=== PATIENT | male | born 1985 | race Caucasian/White ===

== ENCOUNTER 2020-09-22 21:31 | Emergency (ER) | payer BC ==
--- NOTE | 2020-09-23 | EDM.PDOC ---
ED HPI GENERAL MEDICAL PROBLEM - General Chief Complaint: Skin Complaint Stated Complaint: CYST ON LOWER BACK Time Seen by Provider: 09/22/20 23:23 Source of Information: Reports: Patient History Limitations: Reports: No Limitations - History of Present Illness INITIAL COMMENTS - FREE TEXT/NARRATIVE: Mr. Martinez is a very pleasant 35-year-old gentleman who now presents to the ED stating that he developed a pilonidal cyst on 09/11/2020. He was evaluated by a telemedicine physician on , 09/18/2020, and prescribed Bactrim, however, he then developed chills, fever, body aches, and diaphoresis. He felt that those symptoms represented an allergic reaction to the Bactrim, therefore he went to the walk-in clinic that same day. There, he was found to have a fever of 103 degrees. The pilonidal cyst was not incised. His Bactrim was switched to Augmentin. He felt that the pilonidal cyst was becoming more full and pressurized, therefore he went to the [facility] ED yesterday, 09/21/2020. He states that the pilonidal cyst was incised and drained, and that packing was placed in the wound. His Augmentin was switched to doxycycline. He was prescribed [place], and referred to a surgeon in [place]. The patient now presents to the ED stating that he squeezed the pilonidal cyst earlier tonight, and noticed pus coming out of it. He states that he did not remove the packing, although it is possible that it fell out on its own. The patient states that he first developed a pilonidal cyst 12 years ago, but after the first bout with one, he was asymptomatic until about 3 years ago. The patient states that he has never been evaluated by a Surgeon for his pilonidal cyst, and that he has not called to make an appointment with the Surgeon in [facility]. Here in the ED, the patient is found to be tachycardic at 111 bpm, otherwise, he is hemodynamically stable, afebrile, saturating 96% on room air. He appears to be somewhat uncomfortable, with a flushed face and diaphoresis. Prior to 09/11/2020, the patient denies having a recent fever, chills, sore throat, ear pain, nasal or sinus congestion, cough, dyspnea, chest pain, palpitations, nausea, vomiting, constipation, diarrhea, abdominal pain, urinary symptoms, recent weight gain or weight loss, recent bloody bowel movements or black bowel movements, recent joint aches, headaches, or rashes. The patient's PCP is KENZIE Salmon. Treatments ACCOUNT RECEIVABLE ASSOCIATE: Reports: Other Medication(s) Other Treatments ACCOUNT RECEIVABLE ASSOCIATE: hydrocodone @1700 Left Buttock Pain Score (Numeric/FACES): 10 - Related Data Allergies Allergy/AdvReac Type Severity Reaction Status Date / Time No Known Allergies Allergy Verified 09/23/20 00:02 Home Meds: Home Meds Amoxicillin/Clavulanate K [Augmentin 875-125 MG] 1 tab PO BID 09/22/20 [History] Past Medical History Dermatologic History: Reports: Other (See Below) (Pilonidal cysts) - Past Surgical History HEENT Surgical History: Reports: Oral Surgery (dental extractions) Social & Family History - Tobacco Use Tobacco Use Status *Q: Current Every Day Tobacco User Years of Tobacco use: 18 Packs/Tins Daily: 0.5 Tobacco Use Comment: Started smoking at 17 yrs old - Caffeine Use Caffeine Use: Reports: Coffee - Alcohol Use Alcohol Use History: No - Recreational Drug Use Recreational Drug Use: No - Living Situation & Occupation Living situation: Reports: , with Spouse, with Family (1 child) Occupation: Employed (Self-employed) ED ROS GENERAL - Review of Systems Review Of Systems: Comprehensive ROS is negative, except as noted in HPI. ED EXAM, GENERAL - Physical Exam Exam: See Below Exam Limited By: No Limitations General Appearance: Alert, WD/WN, Mild Distress (appears uncomfortable) Rectal (Males) Exam: Other (There is a swollen, indurated, and tender area to the superior medial aspect of the patient's left buttock, in the center of which is an approximately 0.5 cm incision, from which there is spontaneous drainage of pus. The indurated area is tender to palpation, and palpation increases the amount of p) Course - Vital Signs Last Recorded V/S: Last Vital Signs Temp 35.8 C L 09/22/20 21:49 Pulse 111 H 09/22/20 21:49 Resp 18 09/22/20 21:49 BP 124/83 09/22/20 21:49 Pulse Ox 96 09/22/20 21:49 - Re-Assessments/Exams Free Text/Narrative Re-Assessment/Exam: 09/22/20 23:55 As above, the patient has either a pilonidal cyst or an abscess of his superior left buttock (it probably is a pilonidal cyst). He is currently on doxycycline. The wound was incised and drained yesterday, and while it may have been packed at the time, the packing appears to have fallen out. Nevertheless, the wound is draining on its own without difficulty. Case discussed with Dr. Martinez at 23:49. He does not feel that the patient needs to be admitted to the hospital. He recommended that the patient follow-up at the surgery clinic tomorrow. He did not recommend a change in antibiotics at this time, since the patient was just switched to doxycycline yesterday. 09/22/20 23:[address] Martinez discussed with the patient. He is agreeable with that plan. Departure - Departure Time of Disposition: 23:59 Disposition: Home, Self-Care 01 Condition: Good Clinical Impression: Infected pilonidal cyst - Discharge Information *PRESCRIPTION DRUG MONITORING PROGRAM REVIEWED*: Not Applicable *COPY OF PRESCRIPTION DRUG MONITORING REPORT IN PATIENT ANGEL: Not Applicable Instructions: Pilonidal Cyst Referrals: Ofelia Orozco PA-C [Primary Care Provider] - Erik Martinez MD [Physician] - Forms: ED Department Discharge Additional Instructions: You were seen in the emergency room for continued purulent drainage of an infected pilonidal cyst. Your case was discussed with the surgeon Dr. Erik Martinez. He did not recommend admission to the hospital or changing your antibiotics at this time, however, he did advise you to contact the surgery clinic in the morning to make an appointment to be seen tomorrow. In the meantime, continue to take your previously prescribed doxycycline as prescribed. If any other problems, please do not hesitate to return to the ER. Sepsis Event Note (ED) - Evaluation Sepsis Screening Result: Possible Sepsis Risk
== END 2020-09-23 00:08 | disposition home or self-care (01) ==
LOC: JD.ED 21:31
DX: L05.01 Pilonidal cyst with abscess (principal); Z72.0 Tobacco use
CPT/HCPCS: 99282; 99284

== ENCOUNTER 2022-09-10 16:24 | Emergency (ER) | payer BC ==
[2022-09-10] MEDS ORDERED: Lidocaine 1% 10 ML MDV INJECT ONE (17:05)
[2022-09-10] MEDS ORDERED: Diphtheria,Pertussis(Acell),Tetanus Vaccine 0.5 ML Syringe IM ONE (17:05)
[2022-09-10 18:48] LABS: HEPATITIS C AB NEGATIVE (NEGATIVE)
[2022-09-13 08:49] LABS: HEPATITIS B SURFACE AG NONREACTIVE (NONREACTIVE)
== END 2022-09-10 18:40 | disposition home or self-care (01) ==
LOC: JD.ED 16:24
DX: S81.812A Laceration without foreign body, left lower leg, initial encounter (principal); Z72.0 Tobacco use; Z23 Encounter for immunization; W26.8XXA Contact with other sharp object(s), not elsewhere classified, initial encounter; Y99.0 Civilian activity done for income or pay
CPT/HCPCS: 12001; 36415; 86803; 87340; 90471; 90715; 99283; J3490

== ENCOUNTER 2022-10-17 21:16 | Emergency (ER) | payer SELFPAY ==
[2022-10-17 21:48] LABS: BASOPHILS ABSOLUTE AUTO 0.03 K/mm3 (0.01-0.08); BASOPHILS PERCENT AUTO 0.4 % (0.1-1.2); EOSINOPHILS ABSOLUTE AUTO 0.09 K/mm3 (0.04-0.54); EOSINOPHILS PERCENT AUTO 1.1 (0.8-7.0); HEMATOCRIT 44.3 % (40.1-51.0); HEMOGLOBIN 14.8 gm/dl (13.7-17.5); IMMATURE GRAN ABSOLUTE AUTO 0.01 K/mm3 (0.00-0.10); IMMATURE GRAN PERCENT AUTO 0.1 % (<=1.0); LYMPHOCYTES PERCENT AUTO 22.3 % (21.8-53.1); MEAN CORPUSCULAR HEMOGLOBIN 29.8 pg (25.7-32.2); MEAN CORPUSCULAR HGB CONC 33.4 g/dl (32.2-35.5); MEAN CORPUSCULAR VOLUME 89.3 fl (79.0-92.2); MONOCYTES ABSOLUTE AUTO 0.71 K/mm3 (0.30-0.82); MONOCYTES PERCENT AUTO 8.3 % (5.3-12.2); NEUTROPHILS ABSOLUTE AUTO 5.79 K/mm3 (1.78-5.38); NEUTROPHILS PERCENT AUTO 67.8 % (34.0-67.9); PLATELET COUNT,PLT 202 K/mm3 (163-337); RED BLOOD CELL COUNT 4.96 M/mm3 (4.63-6.08); WHITE BLOOD CELL COUNT,WBC 8.53 K/mm3 (4.23-9.07)
[2022-10-17 22:05] LABS: INR 1.01; PROTHROMBIN TIME 10.8 SECONDS (9.7-12.0)
[2022-10-17 22:06] LABS: D-DIMER QUANTITATIVE 0.2 mg/L (0.19-0.50)
[2022-10-17 22:07] LABS: PTT,PARTIAL THROMBOPLSTIN TIME 24.6 SECONDS (21.7-31.4)
[2022-10-17 22:19] LABS: A/G RATIO 1.2 (1-2); ALBUMIN 3.8 g/dl (3.4-5.0); ANION GAP 11.4 (5-15); BILIRUBIN TOTAL 0.3 mg/dL (0.2-1.0); BUN/CREATININE RATIO 28.9 (14-18); CALCIUM 9.1 mg/dL (8.5-10.1); CREATININE 0.9 mg/dL (0.7-1.3); EST CRCL DRUG DOSING (CG) 131.93 mL/min; POTASSIUM,K 3.4 mEq/L (3.5-5.1)
== END 2022-10-17 23:09 | disposition home or self-care (01) ==
LOC: JD.ED 21:16
DX: R07.89 Other chest pain (principal); Z88.1 Allergy status to other antibiotic agents
CPT/HCPCS: 36415; 71045; 71045-26; 80053; 83735; 83880; 84484; 85025; 85379; 85610; 85730; 93005; 93010; 93246; 99283; 99285